=== PATIENT | female | born 1975 | race Caucasian/White ===

== ENCOUNTER → 2018-11-29 | Outpatient (CLI) | payer OTHER, BC ==
--- NOTE | 2018-11-29 21:50 | CONS ---
CONSULTATION DATE OF SERVICE: 11/29/2018 43-year-old lady who has been evaluated in [facility] Center for possible obstructive sleep apnea-hypopnea syndrome. HISTORY OF PRESENT ILLNESS/SLEEP WAKE EVALUATION: SLEEP SCHEDULE: Patient usual sleep schedule from about 10 p.m. until 5:00 am on working days and from 10 p.m. to 8 a.m. on weekends. FALLING ASLEEP: No problems with falling asleep. No TV in bedroom. DURING SLEEP: She usually sleeps on the side or different positions with loud snoring and witnessed episodes of stopped breathing during the sleep. The patient wakes up from sleep 2 times with 1 episode of nocturia. DURING THE DAY/SLEEP WAKE EVALUATION: In the morning, she wakes up tired, falling asleep during the day. [place] Sleepiness Scale significantly increased to 11. No history of hypnagogic hallucinations, sleep paralysis or cataplexy. The patient drinks 1 caffeinated beverage during the day. PAST MEDICAL HISTORY: Positive for hypertension, hypothyroidism. Increased liver enzymes, fatty liver. PAST SURGICAL HISTORY: , cholecystectomy, uterus ablation. MEDICATIONS: Levothyroxine, lisinopril with hydrochlorothiazide. SOCIAL HISTORY: Positive for smoking less than 1 pack a day for 10 years, quit about 13 years ago. Alcohol consumption occasional. FAMILY HISTORY: Hypertension, liver problems, thyroid problems, snoring. REVIEW OF SYSTEMS: Awakenings from sleep, sleepiness during the day. PHYSICAL EXAM: lady without distress. BP 134/76, HR about 100, RR 16, height 5 feet 3 inches, weight 270 pounds. Body mass index 47.8, temperature 98.1. Oxygen saturation: 97%. HEENT: Oropharynx extremely low position of soft palate. Mallampati 4. Slight restriction of nasal breathing. NECK: 15.5 Inches in circumference. Supple, no JVD. Thyroid is not palpable. LUNGS Clear to percussion and to auscultation. Good air exchange. No wheezing or rhonchi. HEART S1, S2 regular. No murmurs, gallops, or rubs. ABDOMEN: Obese. Soft and nontender. Bowel sounds are present. No organomegaly appreciated. EXTREMITIES No clubbing or cyanosis. INTELLIGENCE RESEARCH SPECIALIST Awake, alert, and oriented X3. Cranial nerves 2 to 7 intact. There is no fasciculation or atrophy. noted. No focal deficits observed. IMPRESSION: 1. Snoring, witnessed episodes of stopped breathing during the sleep, extremely low position of soft palate, sleepiness. [place] Sleepiness Scale is 11 obstructive sleep apnea-hypopnea syndrome. 2. Obesity, body mass index 47.8. 3. History of fatty liver. 4. Asthma. 5. Hypertension. 6. Hypothyroidism. 7. Status post . 8. Status post cholecystectomy. 9. Status post uterine ablation. PLAN: 1. Polysomnography for evaluation of patient's breathing during sleep. 2. CPAP/BiPAP titration if sleep study confirms obstructive sleep apnea-hypopnea syndrome. 3. Preferable position during sleep on the side. 4. No driving if patient feels any sleepiness. 5. I will see patient for follow up visit to explain results of testing and following plan. Thank you very much for referring this patient for consultation. Sincerely, Nicola Fofana MD, PhD, FAASM Diplomat of [employer] Distribution Lineman of [facility] [place] MMODL / IJN: [id number] /
== END | disposition home or self-care (01) ==
LOC: SLEEP 13:05
PROVIDERS: ATTEND Internal Medicine
DX: G47.33 Obstructive sleep apnea (adult) (pediatric) (principal); J45.909 Unspecified asthma, uncomplicated; E03.9 Hypothyroidism, unspecified; I10 Essential (primary) hypertension; F17.210 Nicotine dependence, cigarettes, uncomplicated; Z79.899 Other long term (current) drug therapy; Z87.19 Personal history of other diseases of the digestive system; Z98.890 Other specified postprocedural states; Z90.49 Acquired absence of other specified parts of digestive tract
CPT/HCPCS: 99211

== ENCOUNTER → 2019-04-18 | Outpatient (CLI) | payer OTHER, BC ==
--- NOTE | 2019-04-18 17:53 | PN ---
PROGRESS NOTE DATE OF SERVICE: 04/18/2019 This patient is a 44-year-old lady who has been followed in Sleep Center for treatment of obstructive sleep apnea-hypopnea syndrome. The patient had a home sleep apnea test which showed obstructive sleep apnea-hypopnea syndrome with apnea-hypopnea index 13.8 and oxygen desaturation to 75%. Subsequently the patient was started on treatment with AutoPAP, and today is her first visit after she started to use CPAP equipment. The patient is able to use CPAP, but sometimes she has a feeling that it is difficult for her to exhale. Otherwise, she sleeps better with the machine and feels better during the day. [place] Sleepiness Scale today is 7. I checked her CPAP unit. Range of the pressure is from 5 to 20. The patient is using the machine every night and nights for more than 4 hours, with average usage 4.3 hours per night. Sometimes, according to the patient, her mask is out in the morning. Leak is 12 L/minute, which is within normal range. Apnea-hypopnea index is only 0.6, which is absolutely perfect. MEDICATIONS: 1. Levothyroxine. 2. Lisinopril with hydrochlorothiazide. PHYSICAL EXAMINATION: GENERAL: A pleasant patient in no distress. VITAL SIGNS: BP 146/88, HR around 100, RR 16, weight 270.6, temperature 97.7, oxygen saturation at room air 97%. HEENT: PERRLA, EOMI. Evaluation of oropharynx showed tongue protrudes midline. Extremely low position of soft palate. Mallampati IV. NECK: Supple. No JVD. Thyroid is not palpable. LUNGS: Clear to percussion and to auscultation. Good air exchange. No wheezing or rhonchi. HEART: S1, S2 regular. No murmurs, gallops or rubs. ABDOMEN: Obese. EXTREMITIES: No clubbing or cyanosis. PROFILING MACHINE SET UP OPERATOR TOOL: Awake, alert, and oriented X3. Cranial nerves 2 to 7 intact. There is no fasciculation or atrophy. noted. No focal deficits observed. IMPRESSION: 1. Obstructive sleep apnea-hypopnea syndrome. The patient is using CPAP equipment every night with borderline compliance by hours, benefitting from treatment. 2. Sometimes the patient feels that it is difficult for her to exhale while she is using her CPAP machine. 3. Hypertension. 4. Obesity. 5. History of fatty liver. 6. History of asthma. 7. Hypothyroidism. 8. Status post section. 9. Status post cholecystectomy. 10.Status post uterine ablation. PLAN: 1. I will change the range of her pressure from 5 to 15 because average pressure is 14.8. 2. I will change EPR to 3. 3. Patient will continue to use CPAP equipment every night for the whole night. 4. Losing weight. 5. No driving if feeling any sleepiness. Thank you very much for allowing me to participate in the management of your patient. Sincerely, Nicola Fofana MD, PhD, FAASM Diplomat of [employer] [employer] Manager Product Management of [facility] [place] MMODL / IJN: [id number] /
== END | disposition home or self-care (01) ==
LOC: SLEEP 16:28
PROVIDERS: ATTEND Internal Medicine
DX: G47.33 Obstructive sleep apnea (adult) (pediatric) (principal); I10 Essential (primary) hypertension; E66.9 Obesity, unspecified; E03.9 Hypothyroidism, unspecified; Z86.39 Personal history of other endocrine, nutritional and metabolic disease; Z87.09 Personal history of other diseases of the respiratory system; Z90.49 Acquired absence of other specified parts of digestive tract; Z98.890 Other specified postprocedural states; Z79.899 Other long term (current) drug therapy

== ENCOUNTER → 2019-10-17 | Outpatient (CLI) | payer BC ==
--- NOTE | 2019-10-18 04:43 | SFUN ---
SLEEP CENTER FOLLOW UP NOTE DATE OF SERVICE: 10/17/2019 This patient is a 44-year-old lady who has been followed in the sleep center for treatment of obstructive sleep apnea-hypopnea syndrome. Patient successfully continuing to use her CPAP equipment. No snoring with the machine. Usage is 29 out of 30 nights, auto PAP in the range 5 to 15. Leak is 7 L/minute, which is acceptable. Apnea-hypopnea index of 1.0, which is normal. [place] Sleepiness Scale is 5. MEDICATIONS: 1. Lisinopril with hydrochlorothiazide. 2. Levothyroxine. PHYSICAL EXAMINATION: GENERAL: lady without distress, VITAL SIGNS: BP 138/87, HR 88, RR 15, height 5 feet, 3 inches, weight 273, body mass index 48.3. HEENT: PERRLA, EOMI. Oropharynx extremely low position of soft palate. Mallampati 4. NECK: Supple, no JVD. Thyroid is not palpable. LUNGS: Clear to percussion and to auscultation. Good air exchange. No wheezing or rhonchi. HEART: S1, S2 regular. No murmurs, gallops, or rubs. ABDOMEN: Obese. EXTREMITIES: No clubbing or cyanosis. GARDEN MACHINERY MECHANIC: Awake, alert, and oriented X3. Cranial nerves 2 to 7 intact. There is no fasciculation or atrophy. noted. No focal deficits observed. IMPRESSION: 1. Obstructive sleep apnea-hypopnea syndrome. The patient demonstrated great compliance with treatment, benefitting from treatment. 2. Hypertension. 3. Obesity. 4. History of fatty liver. 5. History of asthma. 6. Hypothyroidism. 7. Status post . 8. Status post cholecystectomy. 9. Status post uterine ablation. PLAN: 1. Patient will continue to use CPAP equipment every night for the whole night. 2. Watching and losing weight. 3. Sleep hygiene with regular time bed for at least 7-1/2 to 8 hours. 4. No driving if feeling any sleepiness. 5. Prescription for all necessary CPAP supplies including AirFit F20 mask, tube, filters. 6. Follow-up appointment in 6 months or earlier if patient has any problems. Thank you very much for allowing me to participate in management of this patient. Sincerely, Nicola Fofana MD, PhD, FAASM Diplomat of [employer] Foil Stamp Operator of [facility] [place] [email or web address] / JANAY: [id number] /
== END | disposition home or self-care (01) ==
LOC: SLEEP 11:31
PROVIDERS: ATTEND Internal Medicine
DX: G47.33 Obstructive sleep apnea (adult) (pediatric) (principal); I10 Essential (primary) hypertension; E66.9 Obesity, unspecified; E03.9 Hypothyroidism, unspecified; Z68.42 Body mass index [BMI] 45.0-49.9, adult; Z87.09 Personal history of other diseases of the respiratory system; Z87.19 Personal history of other diseases of the digestive system; Z98.890 Other specified postprocedural states; Z90.49 Acquired absence of other specified parts of digestive tract; Z79.899 Other long term (current) drug therapy

== ENCOUNTER → 2020-01-20 | Outpatient (CLI) | payer BC ==
--- NOTE | 2020-01-20 09:57 | CT ---
EXAMINATION TYPE: CT urogram wo/w con DATE OF EXAM: 01/20/2020 HISTORY: Gross hematuria, left flank pain CT DLP: 466.5mGycm Automated Exposure Control for Dose Reduction was Utilized. CONTRAST: CT scan of the abdomen and pelvis is performed without oral and without and with IV Contrast, patient injected with 100 mL of Isovue 300. Urogram protocol with 3-D reconstructed images created on an [employer] workstation and reviewed COMPARISON: CT abdomen and pelvis January 28, 2016 FINDINGS: KUB: Noncontrast images show no renal calculi bilaterally. Postcontrast images show symmetric cortica l medullary uptake and excretion without concerning solid or cystic renal mass or hydronephrosis seen bilaterally. There is partially duplicated collecting system on the left and proximal hydroureter wi th at least duplicated left-sided ureter up to the pelvic brim or mid ureter level. One ureter does n ot completely opacify distally to identify site of possible fusion. There is no suspicious filling de fect or mass in either ureter. Urinary bladder shows satisfactory distention without intraluminal mas s or wall thickening. Single posterior right pelvic phlebolith on axial image 89. LUNG BASES: No significant abnormality is appreciated. LIVER/GB: Liver is diffusely low dense consistent with fatty infiltration on noncontrast CT. Cholecys tectomy clips are redemonstrated. PANCREAS: No significant abnormality is seen. SPLEEN: No significant abnormality is seen. ADRENALS: No significant abnormality is seen. KIDNEYS: No significant abnormality is seen. BOWEL: Normal-appearing appendix seen from base of cecum. No suspicious small or large bowel dilatati on. UTERUS/ADNEXA: Anteverted uterus. Tubal ligation clips along the periphery. LYMPH NODES: No greater than 1cm abdominal or pelvic lymph nodes are appreciated. OSSEOUS STRUCTURES: No significant abnormality is seen. OTHER: No significant additional abnormality is seen. IMPRESSION: Source of hematuria and left flank pain not identified. 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 No suspicious new or acute findings identified.
== END | disposition home or self-care (01) ==
LOC: RADCTMAIN 07:37
PROVIDERS: ATTEND Urology
DX: R31.0 Gross hematuria (principal)
CPT/HCPCS: 74178; 74400; Q9967

== ENCOUNTER → 2020-01-27 | Outpatient (CLI) | payer BC ==
--- NOTE | 2020-01-27 09:37 | US ---
EXAMINATION TYPE: US liver DATE OF EXAM: 01/27/2020 COMPARISON: CT scan 01/28/2016, 01/20/2020 CLINICAL HISTORY: R74.8 Abnormal levels of other serum enzymes. Elevated LFT's EXAM MEASUREMENTS: Liver Length: 20.4 cm CBD: 0.4 cm Right Kidney: 11.6 x 4.2 x 4.6 cm Pancreas: wnl Liver: Enlarged, difficult to penetrate Gallbladder: Surgically absent Evidence for sonographic Cervantes's sign: No CBD: wnl Right Kidney: wnl IMPRESSION: 1. Hepatomegaly correlate for hepatitis, hepatic steatosis or diffuse hepatocellular disease.
[2020-01-27 10:20] LABS: Prothrombin Time 10.8 sec (9.0-12.0)
[2020-01-27 10:25] LABS: Bilirubin, Delta 0.3 mg/dL (0.0-0.2); Bilirubin,Unconjugated 0.3 mg/dL (0.0-1.1); Total Bilirubin 0.6 mg/dL (0.2-1.3); Total Protein 6.9 g/dL (6.3-8.2)
[2020-01-27 10:35] LABS: HCT 41.3 % (34.0-46.0); HGB 13.6 gm/dL (11.4-16.0); MCH 32.2 pg (25.0-35.0); MCHC 32.8 g/dL (31.0-37.0); MCV 98.1 fL (80.0-100.0); Mean Platelet Volume 7.4; Platelet Count 264 k/uL (150-450); RBC 4.21 m/uL (3.80-5.40); RDW 13.2 % (11.5-15.5); WBC 7.4 k/uL (3.8-10.6)
[2020-01-27 21:09] LABS: % Iron Saturation 35.22 (12.00-45.00)
[2020-01-27 21:47] LABS: Ferritin 305.8 ng/mL (10.0-291.0)
[2020-01-28 13:18] LABS: Ceruloplasmin 27.4 mg/dL (20.0-60.0)
== END | disposition home or self-care (01) ==
LOC: RADUSWWP 08:54
PROVIDERS: ATTEND Internal Medicine Gastroenterology
DX: R16.0 Hepatomegaly, not elsewhere classified (principal)
CPT/HCPCS: 36415; 76705; 80076; 82390; 82728; 83516; 83540; 83550; 85027; 85610; 86038